=== PATIENT | female | born 1995 | race Caucasian/White ===

== ENCOUNTER 2017-01-01 19:53 | Emergency (ER) | payer BC, OTHER ==
[~2017-01-01] VITALS: Ht 157.5 cm; Wt 62.9 kg
[~2017-01-01 19:53] MED LIST: BCPILLS PO; ESCI1TAB9 PO
[2017-01-01 20:00] VITALS: O2SAT 99; Ht 157.5 cm; Wt 62.9 kg
[2017-01-01 21:25] VITALS: BP 123/89; PULSE 100; TEMP 36.8
[2017-01-01 21:40] VITALS: O2SAT 100
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
== END 2017-01-02 00:10 | disposition home or self-care (01) ==
LOC: C.EDB 19:53 → C.EDC 01-02 00:10
DX: Z04.71 Encounter for examination and observation following alleged adult physical abuse (principal); F41.9 Anxiety disorder, unspecified; F32.9 Major depressive disorder, single episode, unspecified

== ENCOUNTER 2017-05-27 03:36 | Emergency (ER) | payer BC, OTHER ==
[~2017-05-27] VITALS: Ht 160 cm; Wt 64.0 kg
[2017-05-27 03:36] VITALS: TEMP 36.8; O2SAT 96; Ht 160 cm; Wt 64.0 kg
[2017-05-27] MEDS ORDERED: SODIUM CHLORIDE 0.9% 1000ML 1,000 ML IV STA (03:43)
[2017-05-27 04:08] LABS: URINE APPEARANCE CLEAR (CLEAR); URINE BILIRUBIN NEG (NEG); URINE COLOR YELLOW; URINE NITRITE NEG (NEG); URINE PH 5.5 (4.5-7.5); URINE SPECIFIC GRAVITY 1.012 (1.000-1.030); UROBILINOGEN NEG (NEG)
[2017-05-27 04:08] LABS: BASO % 0.6 %; BASO ABS # 0.06 K/uL (0-0.2); COMPLETE YES; EOS % 8.1 %; HEMATOCRIT 40.1 % (37-47); IG% 0.4 %; LYMPH % 31.6 %; LYMPH ABS # 2.94 K/uL (1.2-3.4); MEAN CELL VOLUME 87.4 fL (80-100); MEAN CORPUSCULAR HEMOGLOBIN 30.1 pg (25-34); MEAN CORPUSCULAR HGB CONC 34.4 g/dl (32-36); MEAN PLATELET VOLUME 9.4 fL (7.4-10.4); MONO % 5.4 %; NEUT % 53.9 %; PLATELET COUNT 346 K/uL (130-400); RED BLOOD COUNT 4.59 M/uL (4.2-5.4)
[2017-05-27 04:10] LABS: MANUAL MICROSCOPIC REQUIRED? NO; REVIEW REQ? NO
[2017-05-27 04:17] LABS: PROTHROMBIN TIME (PATIENT) 10.2 SECONDS (9.0-12.0)
[2017-05-27 04:36] LABS: ACETAMINOPHEN < 2 ug/ml (10-30); PREG INTERNAL NEGATIVE QC NEG CLEAR BACKGROUND; PREG INTERNAL POSITIVE QC POS CONTROL LINE
[2017-05-27 04:38] LABS: BENZODIAZEPINE, URINE NEG (NEG); COCAINE,URINE NEG (NEG); PHENCYCLIDINE, URINE NEG (NEG)
[2017-05-27 04:39] LABS: ALT/SGPT 49 U/L (12-78); BLOOD UREA NITROGEN 8 mg/dl (7-18); BUN/CREATININE RATIO 11.7 (10-20); CALCIUM 8.6 mg/dl (8.5-10.1); CARBON DIOXIDE 22 mmol/L (21-32); CHLORIDE 110 mmol/L (98-107); CREATININE 0.65 mg/dl (0.60-1.20); GLUCOSE 84 mg/dl (70-99); POTASSIUM 4.1 mmol/L (3.5-5.1); SODIUM 143 mmol/L (136-145)
[2017-05-27 04:42] LABS: ALKALINE PHOSPHATASE 56 U/L (45-117); AST/SGOT 20 U/L (15-37)
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
--- NOTE | 2017-05-27 08:44 | EMERGENCY ROOM VISIT NOTE ---
ED Visit Note First contact with patient: 08:41 Please see Nia Andrews PA-C note for initial History, ROS, PE, and disposition. Case was signed out to me at time of shift change on 05/27/2017 at 0700hrs. of additional note, the patient did write a letter addressed to her parents telling them how much she loved them around the time that she ingested the medications. MDM: The patient was evaluated by our mental health staff, and the patient was found to be nonsuicidal, non-homicidal and in good state of mind. It was at the time that she was being prepared for potential discharge, when a fax was presented to us outlining letters that the patient had written to the family that were concerning for potential suicide notes. We discussed this with the patient, and she declined suicidal or homicidal ideations and said they were just letters written to her family time, she left him. We informed her that we are concerned at this time that these may have been suicide notes, and there was also a 302 petition by her boyfriend. It was recommended by the mental health staff, and I did the patient be admitted to a psychiatric facility. Patient voluntarily agreed. The involuntary status was not necessary. Patient was probably moved to a psychiatric monitoring room for her safety. I do believe that she is medically cleared, and can then be further evaluated and managed on the psychiatric level. Patient this time appears stable for transfer. She'll be transferred to the [facility] psychiatric facility nearby as our facility here is at full capacity. Patient was discharged. In evaluation treatment this patient following differential diagnoses were entertained: Suicidal and homicidal ideation, among others. Problem List Medical Problems: (1) Anxiety Status: Chronic (2) Depression Status: Chronic Current/Historical Medications Scheduled Control Pills ( Control Pills), 1 TAB PO DAILY Escitalopram Oxalate (Lexapro), 10 MG PO DAILY Allergies Coded Allergies: Latex1 -Allergic Contact Dermititis (Verified Allergy, Unknown, rash, ) Vital Signs Date Time Temp Pulse Resp B/P (MAP) Pulse Ox O2 Delivery O2 Flow Rate FiO2 05/27/17 12:51 85 18 122/75 97 05/27/17 09:50 86 14 112/62 99 Room Air 05/27/17 08:23 91 18 125/63 97 Room Air 05/27/17 07:02 102 18 106/63 97 Room Air 05/27/17 06:54 84 05/27/17 06:06 87 18 96 05/27/17 06:01 110/61 05/27/17 05:36 89 22 95 05/27/17 05:06 93 20 97 05/27/17 05:05 92 19 81/48 96 05/27/17 05:01 76/43 05/27/17 05:00 86 18 96 05/27/17 04:30 76 18 97 05/27/17 04:25 81 16 108/59 97 Room Air 05/27/17 03:53 83 05/27/17 03:36 96 Room Air 05/27/17 03:36 36.8 92 14 115/76 96 Room Air Laboratory Results 05/27/17 03:49 Red Blood Count 4.59, Mean Corpuscular Volume 87.4, Mean Corpuscular Hemoglobin 30.1, Mean Corpuscular Hemoglobin Concent 34.4, Mean Platelet Volume 9.4, Neutrophils (%) (Auto) 53.9, Lymphocytes (%) (Auto) 31.6, Monocytes (%) (Auto) 5.4, Eosinophils (%) (Auto) 8.1, Basophils (%) (Auto) 0.6, Neutrophils # (Auto) 5.01, Lymphocytes # (Auto) 2.94, Monocytes # (Auto) 0.50, Eosinophils # (Auto) 0.75, Basophils # (Auto) 0.06 05/27/17 03:49 Test 05/27/17 03:49 05/27/17 03:54 White Blood Count 9.30 K/uL (4.8-10.8) Red Blood Count 4.59 M/uL (4.2-5.4) Hemoglobin 13.8 g/dL (12.0-16.0) Hematocrit 40.1 % (37-47) Mean Corpuscular Volume 87.4 fL (80-100) Mean Corpuscular Hemoglobin 30.1 pg (25-34) Mean Corpuscular Hemoglobin Concent 34.4 g/dl (32-36) Platelet Count 346 K/uL (130-400) Mean Platelet Volume 9.4 fL (7.4-10.4) Neutrophils (%) (Auto) 53.9 % Lymphocytes (%) (Auto) 31.6 % Monocytes (%) (Auto) 5.4 % Eosinophils (%) (Auto) 8.1 % Basophils (%) (Auto) 0.6 % Neutrophils # (Auto) 5.01 K/uL (1.4-6.5) Lymphocytes # (Auto) 2.94 K/uL (1.2-3.4) Monocytes # (Auto) 0.50 K/uL (0.11-0.59) Eosinophils # (Auto) 0.75 K/uL (0-0.5) Basophils # (Auto) 0.06 K/uL (0-0.2) RDW Standard Deviation 43.1 fL (36.4-46.3) RDW Coefficient of Variation 13.4 % (11.5-14.5) Immature Granulocyte % (Auto) 0.4 % Immature Granulocyte # (Auto) 0.04 K/uL (0.00-0.02) Prothrombin Time 10.2 SECONDS (9.0-12.0) Prothromb Time International Ratio 1.0 (0.9-1.1) Activated Partial Thromboplast Time 27.0 SECONDS (21.0-31.0) Partial Thromboplastin Ratio 1.0 Anion Gap 11.0 mmol/L (3-11) Est Creatinine Clear Calc Drug Dose 123.3 ml/min Estimated GFR () 147.1 Estimated GFR (Non- 126.9 BUN/Creatinine Ratio 11.7 (10-20) Osmolality 320 mOsm/kg (280-300) Calcium Level 8.6 mg/dl (8.5-10.1) Total Bilirubin 0.2 mg/dl (0.2-1) Direct Bilirubin < 0.1 mg/dl (0-0.2) Aspartate Amino Transf (AST/SGOT) 20 U/L (15-37) Alanine Aminotransferase (ALT/SGPT) 49 U/L (12-78) Alkaline Phosphatase 56 U/L (45-117) Total Creatine Kinase 88 U/L (26-192) Total Protein 7.8 gm/dl (6.4-8.2) Albumin 3.8 gm/dl (3.4-5.0) Lipase 168 U/L (73-393) Thyroid Stimulating Hormone (TSH) 2.940 uIu/ml (0.300-4.500) Human Chorionic Gonadotropin, Qual NEG (NEG) Salicylates Level < 1.7 mg/dl (2.8-20) Acetaminophen Level < 2 ug/ml (10-30) Ethyl Alcohol mg/dL 147.0 mg/dl (0-3) Urine Color YELLOW Urine Appearance CLEAR (CLEAR) Urine pH 5.5 (4.5-7.5) Urine Specific [place] 1.012 (1.000-1.030) Urine Protein NEG (NEG) Urine Glucose (UA) NEG (NEG) Urine Ketones NEG (NEG) Urine Occult Blood NEG (NEG) Urine Nitrite NEG (NEG) Urine Bilirubin NEG (NEG) Urine Urobilinogen NEG (NEG) Urine Leukocyte Esterase NEG (NEG) Urine Opiates Screen NEG (NEG) Urine Methadone, Qualitative NEG (NEG) Urine Barbiturates NEG (NEG) Urine Phencyclidine (PCP) Level NEG (NEG) Ur Amphetamine/Methamphetamine NEG (NEG) MDMA (Ecstasy) Screen NEG (NEG) Urine Benzodiazepines Screen NEG (NEG) Urine Cocaine Metabolite NEG (NEG) Urine Marijuana (THC) POS (NEG) Medications Administered Medications (Trade) Dose Ordered Sig/Lamberto Route Start Time Stop Time Status Last Admin Dose Admin Sodium Chloride 1,000 ml @ 0 mls/hr Q0M STAT IV 05/27/17 03:43 05/27/17 03:46 DC 05/27/17 03:43 1,000 MLS/HR Departure Information Impression Primary Impression: Overdose of antidepressant Additional Impression: Overdose Referrals [facility] (PCP) Patient Instructions My [facility] Additional Instructions You were seen in the emergency department for evaluation following ingestion of certain medications. Please return to emergency department with any new/concerning symptoms. We are here 24 7 for any new/concerning symptoms. Problem Qualifiers
[2017-05-27 12:51] VITALS: BP 122/75; PULSE 85; O2SAT 97
== END 2017-05-27 12:45 ==
LOC: EDBD 03:36 → C.EDB 03:37 → C.EDA 12:45
DX: T43.201A Poisoning by unspecified antidepressants, accidental (unintentional), initial encounter (principal); F32.9 Major depressive disorder, single episode, unspecified; F41.9 Anxiety disorder, unspecified; F12.90 Cannabis use, unspecified, uncomplicated; Z79.3 Long term (current) use of hormonal contraceptives; Z79.899 Other long term (current) drug therapy

== ENCOUNTER 2018-01-15 05:17 | Emergency (ER) | payer BC, OTHER ==
[~2018-01-15] VITALS: Ht 157.5 cm; Wt 55.9 kg
[2018-01-15 05:19] VITALS: TEMP 36.8; Ht 157.5 cm; Wt 55.9 kg
[2018-01-15] MEDS ORDERED: GABA-113 PO (05:34)
--- NOTE | 2018-01-15 05:55 | EMERGENCY ROOM VISIT NOTE ---
History Report prepared by Gonzalez: Jak Berman Under the Supervision of: Dr. Yodit Fuentes D.O. First contact with patient: 05:28 Chief Complaint: MENTAL HEALTH EVALUATION Stated Complaint: MENTAL HEALTH EVALUATION History of Present Illness The patient is a 22 year old female who presents to the Emergency Room with complaints of intermittent depressive symptoms that began recently. Patient states that she had a "falling out" with ex-boyfriend alex. She states that she was sitting in her bathtub with a knife when she decided to call a friend to talk to. She states that her friend then went and called the police on her. Patient denies any suicidal ideations. She admits to a history of trying to hurt herself. Patient states that she stopped drinking alcohol tonight 6 hours ago. Patient states that she was admitted to the [facility] previously in May. Patient states that she does not want to go to the [facility]. Patient states that she sees a therapist. She adds that she sees a psychiatrist through [facility]. She denies having nausea, vomiting, or diarrhea. Patient states that she lives with a roommate. She states that her roommate is dancing in [facility]. 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 She adds that her dad knows she is at the ER. Source of History: patient Onset: Recent Position: other (Global) Timing: intermittent Modifying Factors (Relieving): other (None) Associated Symptoms: No nausea, No vomiting, No diarrhea Review of Systems See HPI for pertinent positives & negatives. A total of 10 systems reviewed and were otherwise negative. Past Medical & Surgical Medical Problems: (1) Aggressive behavior (2) Alcohol overdose (3) Anxiety (4) Depression Family History No pertinent family history. Social History Smoking Status: Never Smoker Alcohol Use: occasionally Drug Use: marijuana Marital Status: in relationship Housing Status: lives with roommate Occupation Status: [employer] student Current/Historical Medications Scheduled Gabapentin (Neurontin), 300 MG PO DAILY Allergies Coded Allergies: Latex1 -Allergic Contact Dermititis (Verified Allergy, Unknown, rash, ) Physical Exam Vital Signs Date Time Temp Pulse Resp B/P (MAP) Pulse Ox O2 Delivery O2 Flow Rate FiO2 01/15/18 08:53 97 16 131/84 97 01/15/18 06:59 79 15 119/73 96 Room Air 01/15/18 05:19 36.8 81 18 123/77 97 Room Air Physical Exam HEENT: Head - normocephalic and atraumatic Pupils are equal, round, and reactive to light. Extraocular eye muscles are intact, and sclera are anicteric. Nose - moist nasal mucosa without discharge. Mouth - moist buccal mucosa. Oropharynx is nonerythematous and there is no tonsillar exudate or edema noted. Neck: Supple; no JVD, nuchal rigidity, cervical lymphadenopathy. Heart: Regular rate and rhythm. There is a normal S1 and S2 with no murmurs, clicks, or gallops appreciated. Lungs: Clear to auscultation bilaterally with no wheezes, rales, or rhonchi. Abdomen: Soft, completely nontender, nondistended, with good bowel sounds. There are no palpable pulsatile masses or hepatosplenomegaly. There is no guarding, rigidity, or rebound noted. Extremities: No evidence of cyanosis, clubbing, or edema. There are easily palpable peripheral pulses. Skin: warm and dry with good turgor and no rashes. Psych: Normal affect, denies suicidal ideation or plan. Medical Decision & Procedures Laboratory Results 01/15/18 06:14 01/15/18 06:14 Test 01/15/18 00:00 01/15/18 06:14 Urine Color YELLOW Urine Appearance CLEAR (CLEAR) Urine pH 6.0 (4.5-7.5) Urine Specific [place] 1.007 (1.000-1.030) Urine Protein NEG (NEG) Urine Glucose (UA) NEG (NEG) Urine Ketones NEG (NEG) Urine Occult Blood NEG (NEG) Urine Nitrite NEG (NEG) Urine Bilirubin NEG (NEG) Urine Urobilinogen NEG (NEG) Urine Leukocyte Esterase NEG (NEG) Urine Test NEG (NEG) Urine Opiates Screen NEG (NEG) Urine Methadone, Qualitative NEG (NEG) Urine Barbiturates NEG (NEG) Urine Phencyclidine (PCP) Level NEG (NEG) Ur Amphetamine/Methamphetamine NEG (NEG) MDMA (Ecstasy) Screen NEG (NEG) Urine Benzodiazepines Screen NEG (NEG) Urine Cocaine Metabolite NEG (NEG) Urine Marijuana (THC) POS (NEG) Red Blood Count 4.49 M/uL (4.2-5.4) Mean Corpuscular Volume 86.4 fL (80-100) Mean Corpuscular Hemoglobin 29.8 pg (25-34) Mean Corpuscular Hemoglobin Concent 34.5 g/dl (32-36) RDW Standard Deviation 45.0 fL (36.4-46.3) RDW Coefficient of Variation 14.2 % (11.5-14.5) Mean Platelet Volume 9.1 fL (7.4-10.4) Anion Gap 9.0 mmol/L (3-11) Est Creatinine Clear Calc Drug Dose 99.7 ml/min Estimated GFR () 142.5 Estimated GFR (Non- 123.0 BUN/Creatinine Ratio 14.7 (10-20) Calcium Level 8.8 mg/dl (8.5-10.1) Total Bilirubin 0.4 mg/dl (0.2-1) Direct Bilirubin < 0.1 mg/dl (0-0.2) Aspartate Amino Transf (AST/SGOT) 31 U/L (15-37) Alanine Aminotransferase (ALT/SGPT) 55 U/L (12-78) Alkaline Phosphatase 61 U/L (45-117) Total Protein 7.6 gm/dl (6.4-8.2) Albumin 3.7 gm/dl (3.4-5.0) Thyroid Stimulating Hormone (TSH) 4.090 uIu/ml (0.300-4.500) Salicylates Level < 1.7 mg/dl (2.8-20) Acetaminophen Level < 2 ug/ml (10-30) Ethyl Alcohol mg/dL 21.0 mg/dl (0-3) Laboratory results per my review. ED Course 0535: Past medical records reviewed. The patient was evaluated in room A2. A complete history and physical exam was performed. Labs were drawn as above. 0650: the patient was medically cleared. 0705: Patient is being evaluated by psych. 0745: Patient is being evaluated by staff from [facility]. 0755: Berry from [facility] states that he feels like the patient is safe for discharge. 0810: Upon reevaluation, the patient is resting comfortably. I discussed findings and results with her. She verbalized agreement of the treatment plan. She was discharged home. Medical Decision The patient is a 22 year old female who presents to the ED with depressive symptoms. Differential diagnosis includes alcohol intoxication, suicidal ideation, mood disorder, and depression. Lab results show alcohol = 21, tox positive for marijuana, negative Tylenol and Aspirin levels, test negative, urinalysis negative, normal renal function and TSH, normal glucose, normal LFTs, normal white blood cell count, and normal H&H. This is a 22-year-old female patient who presents to the emergency department after having thoughts of wanting to hurt herself. It seems that the patient appropriately called a friend to share feelings and was able to talk through them but the friend still called police as she was concerned for her safety. The patient is not suicidal at this time. She is able to contract for safety and thinks very futuristically. The patient will follow up this week with her therapist [place]. Medication Reconcilliation Current Medication List: was personally reviewed by me Blood Pressure Screening Patient's blood pressure: Normal blood pressure Blood pressure disposition: Did not require urgent referral Impression Primary Impression: Mood disorder Scribe Attestation The scribe's documentation has been prepared under my direction and personally reviewed by me in its entirety. I confirm that the note above accurately reflects all work, treatment, procedures, and medical decision making performed by me. Departure Information Dispostion Home / Self-Care Referrals No Doctor, Assigned (PCP) Forms HOME CARE DOCUMENTATION FORM, IMPORTANT VISIT INFORMATION Patient Instructions Depression Help Tips, Depression Mind Body, My [facility] Additional Instructions Keep your appointments this week with your therapist and psychiatrist. Call [facility] if you have any thoughts of wanting to hurt yourself.
[2018-01-15 06:28] LABS: HEMATOCRIT 38.8 % (37-47); HEMOGLOBIN 13.4 g/dL (12.0-16.0); MEAN CELL VOLUME 86.4 fL (80-100); MEAN CORPUSCULAR HEMOGLOBIN 29.8 pg (25-34); MEAN CORPUSCULAR HGB CONC 34.5 g/dl (32-36); MEAN PLATELET VOLUME 9.1 fL (7.4-10.4); PLATELET COUNT 385 K/uL (130-400); RED CELL DISTRIBUTION WIDTH CV 14.2 % (11.5-14.5); WHITE BLOOD COUNT 9.36 K/uL (4.8-10.8)
[2018-01-15 06:48] LABS: BLOOD UREA NITROGEN 10 mg/dl (7-18); GLUCOSE 91 mg/dl (70-99)
[2018-01-15 06:49] LABS: ALBUMIN 3.7 gm/dl (3.4-5.0); ALT/SGPT 55 U/L (12-78); AST/SGOT 31 U/L (15-37); CALCIUM 8.8 mg/dl (8.5-10.1); CARBON DIOXIDE 24 mmol/L (21-32); POTASSIUM 3.6 mmol/L (3.5-5.1); SODIUM 137 mmol/L (136-145)
[2018-01-15 07:00] LABS: ALKALINE PHOSPHATASE 61 U/L (45-117); TOTAL PROTEIN 7.6 gm/dl (6.4-8.2)
[2018-01-15 08:53] VITALS: BP 131/84; PULSE 97; O2SAT 97
== END 2018-01-15 08:56 | disposition home or self-care (01) ==
LOC: C.EDB 05:18 → C.EDA 08:56
DX: F39 Unspecified mood [affective] disorder (principal); F12.90 Cannabis use, unspecified, uncomplicated; Z91.040 Latex allergy status